=== PATIENT | male | born 1930 | race African-American/Black ===

== ENCOUNTER 2020-06-22 02:18 | Emergency (ER) | payer OTHER ==
[2020-06-22 03:33] LABS: ALT (SGPT) 19 U/L (8-55); AST (SGOT) 36 U/L (5-34); Albumin 3.5 g/dL (3.4-4.8); Alkaline Phosphatase 96 U/L (40-110); Anion Gap 21 mmol/L (10-20); BUN (Urea Nitrogen) 71 mg/dL (8.4-25.7); Bilirubin, Total 0.9 mg/dL (0.2-1.2); Calc. Creatinine Clearance 0 mL/min (70-130); Calcium 9.4 mg/dL (7.8-10.44); Carbon Dioxide 16 mmol/L (23-31); Chloride 99 mmol/L (98-107); Estimated GFR-MDRD 56; Globulin 3.1 g/dL (2.4-3.5); Glucose 80 mg/dL (83-110); Lipase 100 U/L (8-78); Potassium 4.8 mmol/L (3.5-5.1); Protein, Total 6.6 g/dL (5.8-8.1); Sodium 131 mmol/L (136-145)
[2020-06-22 03:37] LABS: #Lymphocytes 0.8 thou/uL (1.20-3.40); #Monocytes 0.4 thou/uL (0.11-0.59); #Neutrophils 5.7 thou/uL (1.40-6.50); %Basophils 0.2 % (0.0-1.0); %Eosinophils 0.2 % (0.0-10.0); %Lymphocytes 11.5 % (21.0-51.0); %Monocytes 5.8 % (0.0-10.0); %Neutrophils 82.3 % (42.0-75.0); Anisocytosis SLIGHT = 6-15 cells (100X) (0-5/hpf); Crenated RBC SLIGHT = 1-5 cells (100X) (None Seen); Hemoglobin 11.9 g/dL (14.0-18.0); MDiff Complete? YES; Mean Corpuscular HGB CONC 31.3 g/dL (32.0-36.0); Mean Corpuscular Hemoglobin 28.8 pg (27.0-31.0); Mean Corpuscular Volume 91.8 fL (78.0-98.0); Mean Platelet Volume 10.3 fL (7.4-10.4); Platelet Count 93 thou/uL (130-400); Platelet Morphology Comment Appears Decreased; RBC Distribution Width 18.2 % (11.5-14.5); Red Blood Cell (RBC) Count 4.13 mill/uL (4.70-6.10); White Blood Cell (WBC) Count 6.9 thou/uL (4.8-10.8)
[2020-06-22 03:41] LABS: Troponin I 0.043 ng/mL (< 0.028)
[2020-06-22 03:46] LABS: Bacteria/HPF 4+ HPF (None Seen); Bilirubin Negative (Negative); Blood, Urine 1+ (Negative); Clarity Clear (Clear); Glucose, Urine (Dipstick) Normal (Negative); Ketone, Urine 10 mg/dL (Negative); Leukocyte Negative Leu/uL (Negative); Nitrite Negative (Negative); Protein, Urine (Dipstick) Negative (Neg-Trace); Specific Gravity, Urine 1.018 (1.002-1.036); Squamous Epithelial 0-3 HPF (0-3); Urobilinogen Normal mg/dL (Less than 2)
[2020-06-22] MEDS ORDERED: cefTRIAXone\\ROCEPHIN 1 GM VIAL ONE (04:03)
--- NOTE | 2020-06-22 09:00 | CT ---
PRELIMINARY REPORT/[facility]/EMERGENCY AFTER HOURS PROCEDURE: Abdominal and pelvic CT with IV contrast History: Abdominal pain. Weight loss. Decreased appetite. Smoker. Comparison: None Findings: Bibasilar lung nodules measuring up to at least 18 mm in size. Small right pleural effusion. Innumerable low-density hepatic lesions measuring up to 5 cm in size. Unremarkable spleen, pancreas, left adrenal. Enlarged nodular right adrenal gland. Poorly visualized but grossly unremarkable gallbladder. Right renal cyst. Unremarkable left kidney. Moderately distended bladder. Enlarged partially calcified prostate. Evaluation of the bowel limited in the absence of enteric contrast. There is mild nonspecific gaseou s distention of multiple discontinuous small and large bowel loops. Large volume of stool noted. No free fluid. No acute inflammatory stranding. Calcified partially thrombosed infrarenal AAA measuring up to 3.8 cm in diameter. No evidence of aor tic leak or impending rupture. IVC filter. Heterogeneously diminished bone density with multiple isolated subcentimeter lucent foci throughout t he visualized lower spine. Severe multilevel degenerative disc disease. Impression: Bibasilar lung nodules and innumerable hepatic lesions concerning for metastases. Enlarged nodular right adrenal gland raising concern for metastatic involvement. No acute inflammatory process in the abdomen or pelvis. Small right pleural effusion. Infrarenal AAA. Distended bladder. Enlarged prostate. Heterogeneously diminished bone density may merely represent osteoporosis. There are isolated discre te subcentimeter lucent foci. Given suspicious hepatic, right adrenal and pulmonary findings, the po ssibility of early lytic metastatic lesions should also be considered. ELECTRONICALLY SIGNED BY: Terence Fonseca MD Jun 22, 2020 5:20:24 AM CDT This report is intended for review by the ordering physician only, in accordance of law. If you recei ve this report in error, please call [facility] at [phone]. FINAL REPORT EMERGENCY AFTER HOURS CT ABDOMEN AND PELVIS WITH CONTRAST: FINDINGS/IMPRESSION: I agree with the findings and impression given in the preliminary report per [facility] physici an. 1. There are pulmonary and hepatic masses concerning for metastatic disease. 2. There is a small right pleural effusion. 3. Right adrenal mass may represent metastatic disease. 4. Hepatic and right renal cysts. 5. Abdominal aortic aneurysm. POS: EAA
[2020-06-22] MEDS ORDERED: Nicotine 14 MG PATCH ONE (11:12)
[2020-06-22] MEDS ORDERED: Iopamidol-370 76% 500 ML 1 ML ONE (15:07)
== END 2020-06-22 11:51 ==
LOC: ERS 02:18
DX: R53.1 Weakness (principal); R79.89 Other specified abnormal findings of blood chemistry; C78.7 Secondary malignant neoplasm of liver and intrahepatic bile duct; N39.0 Urinary tract infection, site not specified; F17.210 Nicotine dependence, cigarettes, uncomplicated
CPT/HCPCS: 36415; 51701; 74177; 80053; 81003; 81015; 83690; 84484; 85025; 93005; 96365; J0696; Q9967